=== PATIENT | female | born 1970 | race Caucasian/White ===

== ENCOUNTER → 2016-10-07 | Outpatient (CLI) | payer OTHER ==
[~2016-10-07] MED LIST: CALC-20 PO; LISD20CA PO
--- NOTE | 2016-10-07 09:49 | DIAGNOSTIC IMAGING REPORT ---
KUB CLINICAL HISTORY: N20.0 [id number] COMPARISON STUDY: 3-16 FINDINGS: There is moderate stool present throughout the colon. The renal shadows are partially obscured by overlying bowel gas and fecal material. No renal calculi are visualized. There are multiple pelvic basin calcifications, likely representing phleboliths. There are surgical clips in the right upper quadrant consistent with a prior cholecystectomy. IMPRESSION: No urinary tract calculi are visualized on conventional radiographic imaging Electronically signed by: Arslan Simon M.D. 10/07/2016 9:48 AM Dictated Date/Time: 10/07/2016 9:47 AM
== END | disposition home or self-care (01) ==
LOC: C.RAD 09:20
PROVIDERS: ATTEND Nurse Practitioner Family
DX: N20.0 Calculus of kidney (principal)